=== PATIENT | female | born 1985 | race Caucasian/White ===

== ENCOUNTER 2017-06-23 01:36 | Inpatient (IN) | payer OTHER ==
[~2017-06-23] VITALS: Ht 165.1 cm; Wt 70.3 kg
[~2017-06-23 01:36] MED LIST: ACE3 PO; AMOX-362 PO; CIPR-344 PO; HYDR-4309 PO; IBUP200C71 PO; LOR5/325 PO; PROM-110 PO
[2017-06-23] MEDS ORDERED: LR(*) 1000 ML BAG 1,000 ML IV PRN (01:38)
[2017-06-23 02:11] VITALS: BP 129/83; Ht 165.1 cm; Wt 70.3 kg
[2017-06-23] MEDS ORDERED: PREN-127 PO (02:11)
[2017-06-23] MEDS ORDERED: OMEP-125 PO (02:11)
[2017-06-23] MEDS ORDERED: ceFAZolin(*) 2GM/D5W 50ML 50 ML IVPB PRN (02:28)
[2017-06-23] MEDS ORDERED: OXYTOCIN 30 UNIT/D5LR 500 ML 500 ML IV PRN (02:28)
[2017-06-23] MEDS ORDERED: FAMOTIDINE(*) 20MG/50ML PREMIX 50 ML IVPB PRN (02:28)
[2017-06-23] MEDS ORDERED: LIDOCAINE/SOD BICARB 8.4% SYR SC PRN (02:30)
[2017-06-23] MEDS ORDERED: METOCLOPRAMIDE 10 MG/2 ML SDV IVP PRN (02:30)
[2017-06-23] MEDS ORDERED: LIDOCAINE 1% LOCAL 300 MG/30ML INJ PRN (02:30)
[2017-06-23 02:45] LABS: PLATELET COUNT, AUTOMATED 235 K/uL (150-450)
[2017-06-23] MEDS: fentaNYL CITR 100 MCG/2 ML AMP IVP PRN ×3 (03:51→06:00)
[2017-06-23] MEDS ORDERED: FENTANYL/ROPIVACAINE 100 ML BAG EPI PRN (06:20)
[2017-06-23] MEDS ORDERED: ONDANSETRON 4 MG/2 ML VIAL IVP PRN (06:20)
[2017-06-23] MEDS ORDERED: BUPIVACAINE 0.25% MPF INJ EPI PRN (06:20)
[2017-06-23] MEDS ORDERED: LIDO/EPI 2% MPF 1:200,000 20ML EPI PRN (06:20)
[2017-06-23] MEDS ORDERED: BUPIVACAINE 0.5% INJ 30ML VIAL EPI PRN (06:20)
[2017-06-23] MEDS ORDERED: fentaNYL CITR 100 MCG/2 ML AMP IT PRN (06:20)
[2017-06-23] MEDS ORDERED: LIDOCAINE/PF 2% 200MG/10ML AMP 200 MG/10 ML AMPUL EPI PRN (06:20)
[2017-06-23] MEDS ORDERED: EPIDURAL KEYS XX PRN (06:20)
[2017-06-23] MEDS ORDERED: BUPIVACAINE 0.25% MPF INJ ONE (06:24)
[2017-06-23] MEDS ORDERED: LR(*) 1000 ML BAG 1,000 ML ONE (06:24)
--- NOTE | 2017-06-23 08:34 | History & Physical ---
History of Present Illness Estimated Gestational Age: 39.5 Chief Complaint Water broke History of Present Illness 32yo at 39w5d presents with SROM at 0100 today. She has been having contractions since yesterday. No VB. +FM. No preeclampsia symptoms. PNR reviewed. GBS negative. History Patient's Blood Type: A Positive Rubella Status: Immune Group B Strep Screen: Negative Allergies: Coded Allergies: codeine (Verified Adverse Reaction, Intermediate, NAUSEA/VOMITING, 06/22/17 ) Social History: No T/E/D. Med Rec Home Meds Reported Medications Vits W-Ca,Fe,Fa(<1MG) ( VITAMINS) 1 Each Tablet, 1 EACH PO DAILY, TAB 06/23/17 Omeprazole (OMEPRAZOLE) 20 Mg Capsule.dr, 1 CAP PO QDAY, CAP 06/23/17 Discontinued Reported Medications Ibuprofen (IBUPROFEN) 200 Mg Capsule, 1 CAP PO Q6H, CAPSULE 06/17/15 Acetaminophen/Codeine (TYLENOL #3 (OR EQUIV)) 1 Ea Tab, 1 EA PO Q4-6H, TAB 06/17/15 Amoxicillin (AMOXICILLIN) 500 Mg Capsule, 1 CAP PO Q8H, #15 CAPSULE 06/17/15 Discontinued Scripts Hydrocodone Bit/Acetaminophen (NORCO 5-325 TABLET) 1 Each Tablet, 1 EACH PO Q4H Y for PAIN, #15 Prov:CARRI KANCriss Ace DO 06/17/15 Promethazine Hcl (PROMETHAZINE HCL) 25 Mg Tablet, 25 MG PO Q4H Y for NAUSEA/ VOMITING, #14 TAB Prov:LORETAKACY Ace DO 06/17/15 Review of Systems Constitutional: No Fever Neurological: No Syncope Eyes: No Vision Change Cardiovascular: No Chest Pain Respiratory: No Shortness of Breath, No Cough Gastrointestinal: No Nausea, No Vomiting, No Diarrhea Musculoskeletal: No Pain Psychiatric: No Depression, No Anxiety Exam General Exam Vital Signs Vital Signs Date Time Temp Pulse Resp B/P (MAP) Pulse Ox O2 Delivery O2 Flow Rate FiO2 06/23/17 02:11 99.0 78 20 129/83 (98) 96 Room Air General Apperance: Alert/Awake/No Acute Distress Neuro: No Gross deficits Eyes: Normal Extraocular Movement & Vison Cardiovascular: Regular Rate and Rhythm Respiratory: No Respiratory Distress, Clear to Auscultation Abdomen: Gravid - Non-Tender Musculoskeletal: No Weakness/Pain Extremities: No Cyanosis,Clubbing or Edema Integumentary: Skin Intact without Lesions or Rash Psychological: Alert & Oriented X3, Appropriate Mood & Affect Cervical Dialation: 6 Cervical Effacement (%): 100 Cervical Consistency: Soft Cervical Position: Mid Station: 0 Presentation: Vertex Uterine Contractions(Q min): 3 Uterine Contraction Strength: Moderate UC Resting Tone: Soft Fetus Feeling Movement?: Yes FHT Category: I Medical Decision Making Data Points Result Diagram: 06/23/1722406/23/17224 Pr:Cr 1.4 Pre-Admit Course Medical Record Review: Yes VTE Prophylasis: Adult Deep Vein Thrombosis/Pulmonary: No Pharmacological Contraindicati: Pt at Low Risk for VTE Mechanical Contraindications: Pt at Low Risk for VTE Assessment and Plan Problems: (1) SROM (spontaneous rupture of membranes) Assessment & Plan: 32yo at 39w5d presents with SROM at 0100. She is progressing well. GBS negative. Anticipate . (2) Pre-eclampsia during in third trimester, antepartum Assessment & Plan: Preeclampsia without severe features. Monitor BP and symptoms. (3) 39 weeks gestation of AKUA OSBORNE MD Jun 23, 2017 06:30
--- NOTE | 2017-06-23 09:57 | Anesthesia OB Pre-Anes Eval ---
History of Present Illness Anesthesia Start Date: Jun 23, 2017 Anesthesia Start Time: 06:40 OB Anesthesia Diagnosis: spontaneous ROM (Preeclampsia pt that presents with ROM) EDC: Jun 25, 2017 : 1 Para: 0 Pain Ratin Result Diagram: 06/23/1722406/23/17224 Height (Inches): 65.00 Weight (Pounds): 155 BMI Calculated: 25.79 Past Medical History Medical History: no pertinent history, other (kidney stones) Surgical History: other (Lasik) Attended Childbirth Classes?: No Hx Anesthesia Reactions: No Hx Family Anesthesia Reaction: No Home Meds Active Scripts Oxycodone Hcl/Acetaminophen (PERCOCET 5-325 MG TABLET) 1 Each Tablet, 1-2 TAB PO Q4H Y for pain, #30 TAB 0 Refills Prov:AKUA OSBORNE MD 06/23/17 Reported Medications Vits W-Ca,Fe,Fa(<1MG) ( VITAMINS) 1 Each Tablet, 1 EACH PO DAILY, TAB 06/23/17 Omeprazole (OMEPRAZOLE) 20 Mg Capsule.dr, 1 CAP PO QDAY, CAP 06/23/17 Discontinued Reported Medications Ibuprofen (IBUPROFEN) 200 Mg Capsule, 1 CAP PO Q6H, CAPSULE 06/17/15 Acetaminophen/Codeine (TYLENOL #3 (OR EQUIV)) 1 Ea Tab, 1 EA PO Q4-6H, TAB 06/17/15 Amoxicillin (AMOXICILLIN) 500 Mg Capsule, 1 CAP PO Q8H, #15 CAPSULE 06/17/15 Discontinued Scripts Hydrocodone Bit/Acetaminophen (NORCO 5-325 TABLET) 1 Each Tablet, 1 EACH PO Q4H Y for PAIN, #15 Prov:KACY KAN DO 06/17/15 Promethazine Hcl (PROMETHAZINE HCL) 25 Mg Tablet, 25 MG PO Q4H Y for NAUSEA/ VOMITING, #14 TAB Prov:KACY KAN DO 06/17/15 Allergies: Coded Allergies: codeine (Verified Adverse Reaction, Intermediate, NAUSEA/VOMITING, 06/22/17 ) Anesthesia OB ROS Neurological: No migraines/headaches, No seizures, No neuropathy, No other ENT: Denies Tooth caps, Denies Loose teeth, Denies Chipped teeth, Denies Dentures, Denies Bridges, Denies Retainers, Denies Veneers, Denies Implants, Denies Tongue ring, Denies Other Pulmonary: No asthma, No smoker (pks/day/yrs), No other Airway Class: l Cardiovascular ROS: No edema, No arrhythmia, No other GI ROS: NPO (Pt is NPO >8 hrs with the exception of sips of water) Last Solids Date: Jun 22, 2017 Last Solids Time: 22:00 ROS: No Herpes, No STD(s), No Liver Disease, No Renal Disease, No Other Endocrine ROS: No diabetes, No gestational diabetes, No thyroid disorder, No other Musculoskeletal ROS: No low back pain, No low back injury, No scoliosis, No other ASA Classification: 2 Assessment and Plan Anesthesia Plan: CSE Anesthesia Stop Day: Jun 23, 2017 Anesthesia Stop Time: 10:30 Epidural Catheter Removal: Removed Catheter Intact, Yes, Removed by: (Mathew Barbosa CRNA) Removal Date: Jun 23, 2017 Removal Time: 10:30 Condition Pt delivered baby stable, mother doing well without complication. MATHEW BARBOSA CRNA Jun 23, 2017 09:57
--- NOTE | 2017-06-23 09:59 | OB Delivery Note ---
Delivery Note Vaginal Delivery Type: Spont. Vaginal Delivery Delivery Date: Jun 23, 2017 Delivery Time: 09:34 Length of Labor Stage I (hrs): 7 Length of Labor Stage II (hrs): 1.5 Labor Stage III (minutes): 5 Delivery Anesthesia: Epidural Sex: Female Infant Weight (gms): 3418 Apgars: 1 Minute (9), 5 Minute (9) Repair Needed: Labial, 2nd Degree Estimated Blood Loss: 300 AKUA OSBORNE MD Jun 23, 2017 09:59
--- NOTE | 2017-06-23 10:13 | Procedure Note ---
Anesthetic Placement Note Anesthesia Plan: CSE Permit for Anesthesia Signed: Yes Anesthesia Technique: Patient Sitting Anesthesia Prep: Chlorhexidine Interspace: L 3-4 Local Anesthetic: 1% Lidocaine Amount Local - cc's: 3 Anesthesia Needle: 17g Touhy/Schliff Anesthesia Attempts: 2 Loss of Resistance: Normal Saline Depth of LOS (cm): 5 Epidural Needle Placement: No CSF, No Blood, No Parasthesia Intrathecal Needle: 27 Gauge Pencan Cerebral Spinal Fluid: Yes Catheter Insertion (cm): 12 Catheter Type: Patel - Spring Wound Epidural Dressing: Tegaderm Anesthesia Tray: Lot Number ([id number]), Expiration Date (03/01/2018), Reference Number ([id number]) Comment: CSE placed without complication, tollerated well by Pt. Anesthesia Medications: Intrathecal Dose: mcg Fentanyl (25mcg) Epidural Test Dose: 1.5 Lido/Epi (1:200,000), Dose - mL (5ml), Time (0711), Negative Epidural Infusion: 0.2% Ropivicaine, With Fentanyl 2mcg/ml, Start Time: (0723) Epidural Pump Setting: Bolus Dose - mL (4), Lockout - Minutes (20), Maintenance Rate - mL/hr (8) Complications: None ALEXANDRA SONI CRNA Jun 23, 2017 10:13
[2017-06-23] MEDS ORDERED: MAGNESIUM HYDROXIDE* 30ML UDCP PO PRN (10:20)
[2017-06-23] MEDS ORDERED: LANOLIN OINT 7 GM TUBE TP PRN (10:20)
[2017-06-23] MEDS ORDERED: HYDROCORTISONE 2.5% CR 30GM TB PR PRN (10:20)
[2017-06-23] MEDS ORDERED: ACETAMINOPHEN 325 MG TAB PO PRN (10:20)
[2017-06-23] MEDS ORDERED: IBUP800T37 PO (10:22)
[2017-06-23] MEDS ORDERED: OXYC-865 PO (10:22)
[2017-06-23] MEDS ORDERED: IBUPROFEN 800 MG TAB PO SCH (11:00)
--- NOTE | 2017-06-23 11:31 | DELIVERY NOTE ---
DELIVERY DATE: June 23, 2017 SURGEON: Carly Shaver MD DRAWER MAKER: Mathew Barbosa CRNA ANESTHESIA: Epidural PREOPERATIVE DIAGNOSIS Intrauterine at 39 weeks and 5 days, presenting with spontaneous rupture of membranes in spontaneous active labor. POSTOPERATIVE DIAGNOSES 1. Intrauterine at 39 weeks and 5 days, presenting with spontaneous rupture of membranes in spontaneous active labor. 2. Delivery of a viable female at 0934 hours, weighing 3418 grams or 7 pounds, 8.5 ounces with Apgars of 9 at 1 minute and 9 at 5 minutes. PROCEDURE 1. Spontaneous vaginal delivery. 2. Repair of second-degree midline laceration and left labia laceration. ESTIMATED BLOOD LOSS 300 mL. INDICATIONS FOR PROCEDURE This patient is a 32-year-old 1 para 0 who presented at 39 weeks and 5 days with spontaneous rupture of membranes at 0100 hours on June 23, 2017. At the time of presentation, she was 3, 80 and 0 station. She was able to progress on her own with an epidural, and became complete at 0800 hours. She was allowed to labor down, and then at the time of pushing was able to bring the 's vertex to the perineum with the first contraction. DESCRIPTION OF PROCEDURE The patient was properly identified. She was in the dorsal lithotomy position and prepped and draped in the usual fashion for a vaginal procedure. The patient was then asked to push, and was able to deliver the 's vertex spontaneously in the MICHELLE position over an intact perineum. The anterior shoulder delivered easily followed by the posterior shoulder. The remainder of the was then easily delivered. The had spontaneous cry and spontaneous movement of all 4 extremities. The was dried, stimulated, and the oropharynx and nasopharynx were bulb suctioned. The infant was then passed to the mother's abdomen in good condition. After approximately 90 seconds, the cord was clamped x 2 and cut by the father of the baby. Cord blood was then obtained and passed off the table. Pitocin was started through the IV fluid to help firm the uterus. The placenta delivered spontaneously intact at 0939 hours. At that time, cervix, vaginal vault and perineum were evaluated, and there was noted to be a left labia laceration as well as a second -degree midline laceration. The labia laceration was repaired with a 3-0 Vicryl in a running non-locking fashion. The second-degree midline laceration was then repaired with the 3-0 Vicryl as well. After the repair, hemostasis was ensured, and fundal tone was excellent. Patient tolerated this procedure well and recovered in labor and delivery with her infant. CHRISTIAN
[2017-06-23 11:59] VITALS: BP 122/61
[2017-06-23] MEDS: GLYCERIN/WITCH HAZEL LEAF 1 PK TP PRN (14:57)
[2017-06-23] MEDS: BENZOCAINE 20% 60 ML BTL TP PRN (14:57)
[2017-06-23 15:48] VITALS: BP 113/65
--- NOTE | 2017-06-23 18:03 | Anesthesia Post Eval Note ---
Anesthesia Post Eval Note Stable EMR Pt able to participate in Eval: Yes Cardiovascular Status: Satisfactory Respiratory Status: Satisfactory Pain Managment: Satisfactory PO Nausea/Vomiting: Satisfactory Temperature Management: Satisfactory Mental Status: Satisfactory, Alert, Oriented X3 Post-Op Hydration Status: Satisfactory, Tolerating PO Well, Voiding w/o Difficulty Anesthesia Type: CSE Anesthesia Tolerance: well ALEXANDRA SONI CRNA Jun 23, 2017 18:03
[2017-06-23 19:40] VITALS: BP 134/73
[2017-06-23] MEDS: IBUPROFEN 800 MG TAB PO SCH (21:49)
[2017-06-23] MEDS: DOCUSATE CALCIUM 240 MG CAP PO SCH (21:49)
[2017-06-23] MEDS: APAP/HYDROCODONE 325/5 TAB PO PRN (23:24)
[2017-06-23 23:52] VITALS: BP 141/67
[2017-06-24 03:00] VITALS: BP 126/78
[2017-06-24] MEDS: IBUPROFEN 800 MG TAB PO SCH ×3 (04:32→21:07)
[2017-06-24 08:15] VITALS: BP 130/80
--- NOTE | 2017-06-24 08:29 | OB/GYN Progress Note ---
OB Subjective Progress Notes Subjective Pain controlled, Tolerating diet and activity. Baby . Normal lochia. GI: NEG Nausea, NEG Vomiting : Voiding Well Pain: Mild OB Objective Physical Exam Vital Signs Date Time Temp Pulse Resp B/P (MAP) Pulse Ox O2 Delivery O2 Flow Rate FiO2 06/24/17 04:30 16 Room Air 06/24/17 03:00 98.1 77 126/78 (94) 06/23/17 19:40 95 General Appearance: Alert/Awake/No Acute Distress Neurological: No Gross deficits Eyes: Normal Extraocular Movement & Vison Cardiovascular: Regular Rate and Rhythm Respiratory: No Respiratory Distress, Clear to Auscultation Abdomen: Fundus Firm Extremities: No Cyanosis,Clubbing or Edema, No Edema Integumentary: Skin Intact without Lesions or Rash Psychological: Alert & Oriented X3, Appropriate Mood & Affect Result Diagram: 06/23/1722406/23/17224 Assessment and Plan Problems: (1) SROM (spontaneous rupture of membranes) (2) Pre-eclampsia during in third trimester, antepartum (3) 39 weeks gestation of (4) care following vaginal delivery Assessment & Plan: Pain controlled, Tolerating diet and activity. Baby . Normal lochia. PARUL CHEUNG MD Jun 24, 2017 08:29
[2017-06-24] MEDS: DOCUSATE CALCIUM 240 MG CAP PO SCH ×2 (09:05→21:07)
--- NOTE | 2017-06-24 09:07 | OB/GYN Discharge Summary ---
Discharge Summary Reason for Hosp/Final Diag: (1) SROM (spontaneous rupture of membranes) (2) Pre-eclampsia during in third trimester, antepartum (3) 39 weeks gestation of (4) care following vaginal delivery Hospital Course & Plan: vag delivery, on day 1 Pain controlled, Tolerating diet and activity. Baby . Normal lochia. Lates Vital Signs Vital Signs Date Time Temp Pulse Resp B/P (MAP) Pulse Ox O2 Delivery O2 Flow Rate FiO2 06/24/17 04:30 16 Room Air 06/24/17 03:00 98.1 77 126/78 (94) 06/23/17 19:40 95 Weight (Pounds): 155 Result Diagram: 06/23/1722406/23/17224 Condition: Improved Discharge: Home, Self Jail Meds Active Scripts Oxycodone Hcl/Acetaminophen (PERCOCET 5-325 MG TABLET) 1 Each Tablet, 1-2 TAB PO Q4H Y for pain, #30 TAB 0 Refills Prov:AKUA OSBORNE MD 06/23/17 Reported Medications Vits W-Ca,Fe,Fa(<1MG) ( VITAMINS) 1 Each Tablet, 1 EACH PO DAILY, TAB 06/23/17 Omeprazole (OMEPRAZOLE) 20 Mg Capsule.dr, 1 CAP PO QDAY, CAP 06/23/17 Discontinued Reported Medications Ibuprofen (IBUPROFEN) 200 Mg Capsule, 1 CAP PO Q6H, CAPSULE 06/17/15 Acetaminophen/Codeine (TYLENOL #3 (OR EQUIV)) 1 Ea Tab, 1 EA PO Q4-6H, TAB 06/17/15 Amoxicillin (AMOXICILLIN) 500 Mg Capsule, 1 CAP PO Q8H, #15 CAPSULE 06/17/15 Discontinued Scripts Hydrocodone Bit/Acetaminophen (NORCO 5-325 TABLET) 1 Each Tablet, 1 EACH PO Q4H Y for PAIN, #15 Prov:KACY KAN DO 06/17/15 Promethazine Hcl (PROMETHAZINE HCL) 25 Mg Tablet, 25 MG PO Q4H Y for NAUSEA/ VOMITING, #14 TAB Prov:KACY KAN DO 06/17/15 Follow up with: Dr. Murphy [phone] Follow up in: 6 wks PP or PO Discharge Diet: As Tolerates Discharge Activity: Pelvic Rest Copies to: PARUL CHEUNG MD, JOHN MD Jun 24, 2017 09:07
[2017-06-24 15:30] VITALS: BP 130/77
[2017-06-24 19:45] VITALS: BP 142/85
[2017-06-24] MEDS: APAP/HYDROCODONE 325/5 TAB PO PRN (21:07)
[2017-06-24] MEDS: GLYCERIN/WITCH HAZEL LEAF 1 PK TP PRN (21:07)
[2017-06-24] MEDS: BENZOCAINE 20% 60 ML BTL TP PRN (21:08)
[2017-06-25] MEDS ORDERED: INFLUENZA VIRUS VAC 0.5 ML SYR IM ONLY ONE (09:00)
[2017-06-25] MEDS ORDERED: MEASLES,MUMP,RUBELLA VAC 0.5ML SUBQ ONE (09:00)
[2017-06-25] MEDS ORDERED: DIPHTH/TETANUS/ACEL. PERTUSSIS IM ONLY ONE (09:00)
== END 2017-06-24 21:55 | disposition home or self-care (01) | DRG 775 ==
LOC: OB 01:36
PROVIDERS: ADMIT Obstetrics & Gynecology; ATTEND Obstetrics & Gynecology
PROC: 10E0XZZ Delivery of Products of Conception, External Approach (ICD-10-PCS; principal; 2017-06-23)
PROC: 0KQM0ZZ Repair Perineum Muscle, Open Approach (ICD-10-PCS; 2017-06-23)
DX: O14.04 Mild to moderate pre-eclampsia, complicating childbirth (principal); O70.1 Second degree perineal laceration during delivery; Z37.0 Single live birth; Z3A.39 39 weeks gestation of pregnancy; Z23 Encounter for immunization; Z88.8 Allergy status to other drugs, medicaments and biological substances
CPT/HCPCS: 81001; 82040; 82247; 82310; 82374; 82435; 82565; 82570; 82947; 84075; 84112; 84132; 84155; 84156; 84295; 84450; 84460; 84520; 85025; 86850; 86900; 86901; 90471; 90707; J3010; J7120; S0020

== ENCOUNTER 2017-06-28 04:03 | Emergency (ER) | payer OTHER ==
[2017-06-23 02:11] VITALS: Ht 165.1 cm; Wt 70.3 kg
[~2017-06-28] VITALS: Ht 165.1 cm; Wt 70.3 kg
[~2017-06-28 04:03] MED LIST changes: +IBUP800T37 PO; +OMEP-125 PO; +OXYC-865 PO; +PREN-127 PO
--- NOTE | 2017-06-28 04:07 | ER Report ---
History and Physical Time Seen By MD: 04:09 HPI/ROS CHIEF COMPLAINT: Elevated blood pressure postdelivery HISTORY OF PRESENT ILLNESS: 32-year-old female delivery at 39 and 5 days. She is now 5 days presents complaining of elevated blood pressure and headache tonight. Patient has not slept for 5 days. She is extremely rundown and exhausted. She's having a panic attack because she's not sure. She is feeding her child enough with her breast milk. They're supplemented with formula. Patient noted her blood pressure was elevated tonight, as well as having a panic attack. She took her mother's high blood pressure medication , lisinopril 2.5 mg and another foreign blood pressure medication from [place]?. Patient also states she had visual hallucinations. REVIEW OF SYSTEMS: Respiratory: No cough, no dyspnea. Cardiovascular: No chest pain, no palpitations. Gastrointestinal: No vomiting, no abdominal pain. Musculoskeletal: No back pain. Allergies: Coded Allergies: codeine (Verified Adverse Reaction, Intermediate, NAUSEA/VOMITING, 06/22/17 ) Home Meds Active Scripts Hydroxyzine Hcl (HYDROXYZINE HCL) 25 Mg Tablet, 1-2 TAB PO Q6H Y for nausea or sleep, #20 Prov:KACY KAN DO 06/28/17 Amoxicillin/Pot Clav 875-125 Mg Tab (AUGMENTIN 875-125 TABLET) 1 Each Tablet, 1 TAB PO Q12H for infection, #14 TAB TAKE ONE TABLET BY MOUTH EVERY 12 HOURS Prov:KACY KAN DO 06/28/17 Zolpidem Tartrate (AMBIEN) 5 Mg Tablet, 1-2 TAB PO QHS Y for SLEEP, #6 TAB Prov:KACY KAN DO 06/28/17 Ibuprofen (IBUPROFEN) 800 Mg Tablet, 1 TAB PO Q8H Y for pain, #40 TAB 0 Refills TAKE WITH FOOD EVERY 8 HOURS Prov:AKUA OSBORNE MD 06/23/17 Reported Medications Vits W-Ca,Fe,Fa(<1MG) ( VITAMINS) 1 Each Tablet, 1 EACH PO DAILY, TAB 06/23/17 Discontinued Reported Medications Lisinopril (LISINOPRIL) 5 Mg Tablet, 5 MG PO QDAY, TAB 06/28/17 [Glitsin] No Conflict Check 06/28/17 Omeprazole (OMEPRAZOLE) 20 Mg Capsule., 1 CAP PO QDAY, CAP 06/23/17 Ibuprofen (IBUPROFEN) 200 Mg Capsule, 1 CAP PO Q6H, CAPSULE 06/17/15 Acetaminophen/Codeine (TYLENOL #3 (OR EQUIV)) 1 Ea Tab, 1 EA PO Q4-6H, TAB 06/17/15 Amoxicillin (AMOXICILLIN) 500 Mg Capsule, 1 CAP PO Q8H, #15 CAPSULE 06/17/15 Discontinued Scripts Oxycodone Hcl/Acetaminophen (PERCOCET 5-325 MG TABLET) 1 Each Tablet, 1-2 TAB PO Q4H Y for pain, #30 TAB 0 Refills Prov:AKUA OSBORNE MD 06/23/17 Hydrocodone Bit/Acetaminophen (NORCO 5-325 TABLET) 1 Each Tablet, 1 EACH PO Q4H Y for PAIN, #15 Prov:KACY KAN DO 06/17/15 Promethazine Hcl (PROMETHAZINE HCL) 25 Mg Tablet, 25 MG PO Q4H Y for NAUSEA/ VOMITING, #14 TAB Prov:KACY KAN DO 06/17/15 Past Medical/Surgical History Early state Reviewed Nurses Notes: Yes Old Medical Records Reviewed: Yes Hx Smoking: No Smoking Status: Never Smoker Exposure to Second Hand Smoke?: No Constitutional Vital Sign - Last 24 Hours 06/28/17 06/28/17 06/28/17 06/28/17 04:03 04:09 04:11 04:18 Temp 97.8 Pulse ??? 70 91 Resp 18 B/P (MAP) 147/83 (104) 147/83 Pulse Ox 97 98 O2 Delivery Room Air 06/28/17 06/28/17 06/28/17 06/28/17 04:33 04:34 04:40 04:48 Pulse 82 76 B/P (MAP) 120/68 (85) 124/85 (98) Pulse Ox 95 06/28/17 06/28/17 06/28/17 06/28/17 05:00 05:03 05:18 05:20 Pulse 80 ??? B/P (MAP) 122/84 (97) 127/79 (95) Pulse Ox 96 06/28/17 06:03 Temp 98.0 Physical Exam Vital signs stable, blood pressure 147/84, afebrile, pulse ox normal General Appearance: The patient is alert, has no immediate need for airway protection and no current signs of toxicity. Slightly pale appearing, skin warm and dry HEENT: Pupils equal and round no injection. TMs normal, oropharynx without redness or exudate, mucous members are moist Respiratory: Chest is non tender, lungs are clear to auscultation. Cardiac: regular rate and rhythm Gastrointestinal: Abdomen is soft and non tender, no masses, bowel sounds normal. Musculoskeletal: Neck: Neck is supple and non tender. No lymphadenopathy Extremities have full range of motion and are non tender. Trace edema Skin: No rashes or lesions. DIFFERENTIAL DIAGNOSIS: After history and physical exam differential diagnosis was considered for anxiety, elevated blood pressure, headache, post eclampsia. Medical Decision Making Data Points Result Diagram: 06/28/17 0435 06/28/17 0435 Laboratory Hematology Test 06/28/17 04:20 06/28/17 04:35 Urine Color Straw Urine Clarity Clear Urine pH 7.0 pH (4.8-9.5) Urine Specific [place] 1.005 Urine Protein Negative mg/dL (NEGATIVE) Urine Glucose (UA) Negative mg/dL (NEGATIVE) Urine Ketones Negative mg/dL (NEGATIVE) Urine Blood Large (NEGATIVE) Urine Nitrite Negative (NEGATIVE) Urine Bilirubin Negative (NEGATIVE) Urine Urobilinogen Negative mg/dL (0.2-1.9) Urine Leukocyte Esterase Large (NEGATIVE) Urine RBC 6 /HPF (0-2/HPF) Urine WBC 68 /HPF (0-5/HPF) Urine WBC Clumps Few /HPF Urine Squamous Epithelial Cells Many /LPF (</=FEW) Urine Bacteria Few /HPF (NONE-FEW) Urine Mucus None /HPF (NONE-FEW) Red Blood Count 3.08 M/uL (4.17-5.56) Mean Corpuscular Volume 88.5 fL (80.0-96.0) Mean Corpuscular Hemoglobin 30.8 pg (26.0-33.0) Mean Corpuscular Hemoglobin Concent 34.8 g/dL (32.0-36.0) Red Cell Distribution Width 13.3 % (11.5-14.5) Mean Platelet Volume 7.7 fL (7.2-11.1) Neutrophils (%) (Auto) 72.3 % (39.4-72.5) Lymphocytes (%) (Auto) 15.4 % (17.6-49.6) Monocytes (%) (Auto) 6.8 % (4.1-12.4) Eosinophils (%) (Auto) 4.9 % (0.4-6.7) Basophils (%) (Auto) 0.6 % (0.3-1.4) Nucleated RBC Relative Count (auto) 0.1 /100WBC Neutrophils # (Auto) 7.1 K/uL (2.0-7.4) Lymphocytes # (Auto) 1.5 K/uL (1.3-3.6) Monocytes # (Auto) 0.7 K/uL (0.3-1.0) Eosinophils # (Auto) 0.5 K/uL (0.0-0.5) Basophils # (Auto) 0.1 K/uL (0.0-0.1) Nucleated RBC Absolute Count (auto) 0.01 K/uL Peripheral Blood Smear Yes Y/N Sodium Level 133 mmol/L (137-145) Potassium Level 3.9 mmol/L (3.5-5.0) Chloride Level 101 mmol/L (98-107) Carbon Dioxide Level 23 mmol/L (22-31) Blood Urea Nitrogen 15 mg/dl (7-18) Creatinine 0.70 mg/dl (0.52-1.04) Glomerular Filtration Rate Calc > 60.0 Random Glucose 87 mg/dl (75-110) Calcium Level 8.1 mg/dl (8.4-10.2) Magnesium Level 1.9 mg/dl (1.7-2.2) Total Bilirubin 0.3 mg/dl (0.2-1.3) Aspartate Amino Transf (AST/SGOT) 46 U/L (0-35) Alanine Aminotransferase (ALT/SGPT) 89 U/L (0-56) Alkaline Phosphatase 113 U/L (0-126) Total Protein 6.6 gm/dl (6.3-8.2) Albumin 3.2 g/dl (3.5-5.0) Amylase Level 71 U/L (0-110) Lipase 171 U/L (23-300) Chemistry Test 06/28/17 04:20 06/28/17 04:35 Urine Color Straw Urine Clarity Clear Urine pH 7.0 pH (4.8-9.5) Urine Specific [place] 1.005 Urine Protein Negative mg/dL (NEGATIVE) Urine Glucose (UA) Negative mg/dL (NEGATIVE) Urine Ketones Negative mg/dL (NEGATIVE) Urine Blood Large (NEGATIVE) Urine Nitrite Negative (NEGATIVE) Urine Bilirubin Negative (NEGATIVE) Urine Urobilinogen Negative mg/dL (0.2-1.9) Urine Leukocyte Esterase Large (NEGATIVE) Urine RBC 6 /HPF (0-2/HPF) Urine WBC 68 /HPF (0-5/HPF) Urine WBC Clumps Few /HPF Urine Squamous Epithelial Cells Many /LPF (</=FEW) Urine Bacteria Few /HPF (NONE-FEW) Urine Mucus None /HPF (NONE-FEW) White Blood Count 9.8 k/uL (4.5-11.0) Red Blood Count 3.08 M/uL (4.17-5.56) Hemoglobin 9.5 g/dL (12.0-16.0) Hematocrit 27.2 % (34.0-47.0) Mean Corpuscular Volume 88.5 fL (80.0-96.0) Mean Corpuscular Hemoglobin 30.8 pg (26.0-33.0) Mean Corpuscular Hemoglobin Concent 34.8 g/dL (32.0-36.0) Red Cell Distribution Width 13.3 % (11.5-14.5) Platelet Count 312 K/uL (150-450) Mean Platelet Volume 7.7 fL (7.2-11.1) Neutrophils (%) (Auto) 72.3 % (39.4-72.5) Lymphocytes (%) (Auto) 15.4 % (17.6-49.6) Monocytes (%) (Auto) 6.8 % (4.1-12.4) Eosinophils (%) (Auto) 4.9 % (0.4-6.7) Basophils (%) (Auto) 0.6 % (0.3-1.4) Nucleated RBC Relative Count (auto) 0.1 /100WBC Neutrophils # (Auto) 7.1 K/uL (2.0-7.4) Lymphocytes # (Auto) 1.5 K/uL (1.3-3.6) Monocytes # (Auto) 0.7 K/uL (0.3-1.0) Eosinophils # (Auto) 0.5 K/uL (0.0-0.5) Basophils # (Auto) 0.1 K/uL (0.0-0.1) Nucleated RBC Absolute Count (auto) 0.01 K/uL Peripheral Blood Smear Yes Y/N Glomerular Filtration Rate Calc > 60.0 Calcium Level 8.1 mg/dl (8.4-10.2) Magnesium Level 1.9 mg/dl (1.7-2.2) Total Bilirubin 0.3 mg/dl (0.2-1.3) Aspartate Amino Transf (AST/SGOT) 46 U/L (0-35) Alanine Aminotransferase (ALT/SGPT) 89 U/L (0-56) Alkaline Phosphatase 113 U/L (0-126) Total Protein 6.6 gm/dl (6.3-8.2) Albumin 3.2 g/dl (3.5-5.0) Amylase Level 71 U/L (0-110) Lipase 171 U/L (23-300) Urinalysis Test 06/28/17 04:20 Urine Color Straw Urine Clarity Clear Urine pH 7.0 pH (4.8-9.5) Urine Specific [place] 1.005 Urine Protein Negative mg/dL (NEGATIVE) Urine Glucose (UA) Negative mg/dL (NEGATIVE) Urine Ketones Negative mg/dL (NEGATIVE) Urine Blood Large (NEGATIVE) Urine Nitrite Negative (NEGATIVE) Urine Bilirubin Negative (NEGATIVE) Urine Urobilinogen Negative mg/dL (0.2-1.9) Urine Leukocyte Esterase Large (NEGATIVE) Urine RBC 6 /HPF (0-2/HPF) Urine WBC 68 /HPF (0-5/HPF) Urine WBC Clumps Few /HPF Urine Squamous Epithelial Cells Many /LPF (</=FEW) Urine Bacteria Few /HPF (NONE-FEW) Urine Mucus None /HPF (NONE-FEW) ED Course/Re-evaluation Clinical Indication for ER IV: Hydration, IV Access ED Course Patient was admitted to an examination room. H&P was done. The differential diagnoses was considered. On clinical examination. Patient has stable vital signs. She is afebrile. Patient appears sleep deprived and tired. Diagnostic studies show mild anemia. Urinalysis suggests urinary tract infection. A urinary cultures ordered. Patient's treated with IV fluids, fentanyl and Zofran for headache. Patient's case and laboratory, diagnostics were discussed with Dr. Victor. Dr. Victor advises urgent follow-up on Friday morning. He suggested Augmentin for urinary tract infection. He suggest Ambien for sleep control. Patient also was prescribed hydroxyzine for nausea control and to help sleep. Patient cautioned return to the ER for any worsening. 06/28/2017 5:30:55 am case discussed with Dr. Victor on-call [facility]. Decision to Disposition Date: Jun 28, 2017 Decision to Disposition Time: 05:30 Depart Departure Latest Vital Signs Vital Signs Date Time Temp Pulse Resp B/P (MAP) Pulse Ox O2 Delivery O2 Flow Rate FiO2 06/28/17 06:03 98.0 06/28/17 05:20 127/79 (95) 06/28/17 05:18 ??? 96 06/28/17 04:11 18 Room Air Impression: Primary Impression: Headache Additional Impressions: Anemia Urinary tract infection Sleep deprivation Condition: Improved Disposition: HOME OR SELF-CARE New Scripts Hydroxyzine Hcl (HYDROXYZINE HCL) 25 Mg Tablet 1-2 TAB PO Q6H Y for nausea or sleep, #20 Prov: KACY KAN DO 06/28/17 Amoxicillin/Pot Clav 875-125 Mg Tab (AUGMENTIN 875-125 TABLET) 1 Each Tablet 1 TAB PO Q12H for infection, #14 TAB TAKE ONE TABLET BY MOUTH EVERY 12 HOURS Prov: KACY KAN DO 06/28/17 Zolpidem Tartrate (AMBIEN) 5 Mg Tablet 1-2 TAB PO QHS Y for SLEEP, #6 TAB Prov: KACY KAN DO 06/28/17 Patient Instructions: Anemia (ED), Urinary Tract Infection in Women (ED) Additional Instructions: Drink plenty of fluids Take medication as prescribed Follow-up with your [facility]IN[facility] on Friday Return to the ER for any worsening over the weekend Problem Qualifiers Primary Impression: Headache Headache type: unspecified Headache chronicity pattern: acute headache Intractability: not intractable Qualified Codes: R51 - Headache Additional Impressions: Anemia Anemia type: unspecified type Qualified Codes: D64.9 - Anemia, unspecified Urinary tract infection Urinary tract infection type: acute cystitis Hematuria presence: without hematuria Qualified Codes: N30.00 - Acute cystitis without hematuria KACY KAN DO Jun 28, 2017 04:07
[2017-06-28] MEDS ORDERED: [UNRECOGNIZED DRUG - OTHER] (04:18)
[2017-06-28] MEDS ORDERED: LISI5TAB25 PO (04:19)
[2017-06-28] MEDS ORDERED: NS(*) 0.9% 1000 ML BAG 1,000 ML IV ONE (04:22)
[2017-06-28 04:43] LABS: PLATELET COUNT, AUTOMATED 312 K/uL (150-450)
[2017-06-28 05:20] VITALS: BP 127/79
[2017-06-28] MEDS ORDERED: AMOX/CLAV 875 MG TAB PO ONE (05:40)
[2017-06-28] MEDS ORDERED: fentaNYL CITR 100 MCG/2 ML AMP IVP ONE (05:40)
[2017-06-28] MEDS ORDERED: PROMETHAZINE 25 MG/ML 1 ML AMP IVP ONE (05:40)
[2017-06-28] MEDS ORDERED: AMOX-559 PO (05:49)
[2017-06-28] MEDS ORDERED: ZOLP-1 PO (05:49)
[2017-06-28] MEDS ORDERED: HYDR-4225 PO (05:49)
== END 2017-06-28 06:30 | disposition home or self-care (01) ==
LOC: ER 04:14
DX: N30.00 Acute cystitis without hematuria (principal); D64.9 Anemia, unspecified; R51 Headache; Z72.820 Sleep deprivation
CPT/HCPCS: 81001; 82150; 83690; 83735; 85025; 87088; 96361; 96374; 96375; 99284; J2550; J3010; J7030; 82040; 82247; 82310; 82374; 82435; 82565; 82947; 84075; 84132; 84155; 84295; 84450; 84460; 84520